=== PATIENT | female | born 1945 | race Caucasian/White ===

== ENCOUNTER 2018-08-31 12:33 | Inpatient (IN) | payer OTHER ==
[~2018-08-31] VITALS: Ht 165.1 cm; Wt 104.3 kg
[2018-08-31] MEDS ORDERED: NALOXONE HCL 1 MG/ML 2ML VIAL IV ONE (14:45)
[2018-08-31 15:15] LABS: HEMATOCRIT. 39.8 % (36.0-48.0); HEMOGLOBIN. 12.9 g/dL (12.0-16.0); MEAN CORPUSCULAR HEMOGLOBIN 28.8 pg (28.0-32.0); MEAN PLATELET VOLUME 9.5 fl (7.4-10.4); PLATELET 295 x1000/uL (130-400); RED BLOOD CELL COUNT 4.47 mill/uL (4.2-5.4); RED CELL DISTRIBUTION WIDTH 20.2 % (11.6-14.6)
[2018-08-31 15:19] LABS: CHLORIDE 112 mEq/L (98-107)
[2018-08-31 15:20] LABS: INR 1.2
[2018-08-31 15:23] LABS: ETHANOL BLOOD < 10 mg/dL
[2018-08-31 16:08] LABS: PLATELET ESTIMATE NORMAL
[2018-08-31 16:17] LABS: CLARITY URINE CLOUDY (CLEAR); COLOR URINE DARK YELLOW (YELLOW); KETONES URINE TRACE (NEGATIVE); LEUKOCYTE ESTERASE URINE TRACE (NEGATIVE); NITRITE URINE POSITIVE (NEGATIVE); OCCULT BLOOD URINE NEGATIVE (NEGATIVE); PROTEIN URINE TRACE (NEGATIVE); SPECIFIC GRAVITY URINE 1.025 (1.005-1.030)
[2018-08-31] MEDS ORDERED: SODIUM CHLORIDE 0.9% 1,000 ML IV ONE (16:43)
[2018-08-31] MEDS ORDERED: LEVOFLOXACIN 750MG PREMIX 150 ML IV ONE (16:45)
[2018-08-31] MEDS ORDERED: ASPIRIN 81MG TABLET PO ONE (18:30)
[2018-08-31] MEDS ORDERED: DOCUSATE SODIUM 100MG CAPSULE PO PRN (18:45)
[2018-08-31] MEDS ORDERED: MAGNESIUM/ALUMINUM HYDROXIDE/SIMETHICONE 30ML UDC PO PRN (18:45)
[2018-08-31] MEDS ORDERED: CLONIDINE 0.1MG TABLET PO PRN (18:45)
[2018-08-31] MEDS ORDERED: HYDROCODONE/ACETAMINOPHEN 5/325MG TABLET PO PRN (18:45)
[2018-08-31] MEDS ORDERED: IPRATROPIUM/ALBUTEROL 0.5-3(2.5)MG/3ML NEB INH PRN (18:45)
[2018-08-31] MEDS ORDERED: ACETAMINOPHEN 325MG TABLET PO PRN (18:45)
[2018-08-31] MEDS ORDERED: DIPHENHYDRAMINE 50MG/ML VIAL IV PRN (18:45)
[2018-08-31] MEDS ORDERED: GUAIFENESIN 200MG/10ML SUGAR FREE UDC PO PRN (18:45)
[2018-08-31] MEDS ORDERED: ONDANSETRON HCL 4MG/2ML INJ IV PRN (18:45)
[2018-08-31] MEDS ORDERED: PIPERACILLIN/TAZ 3.375G PREMIX 50 ML IV SCH (18:45)
[2018-08-31] MEDS ORDERED: IOHEXOL-350 100 ML BOTTLE ONE (18:59)
[2018-08-31 19:14] LABS: *AMPHETAMINES SCREEN URINE NEGATIVE (NEGATIVE); *BARBITURATES SCREEN URINE NEGATIVE (NEGATIVE); *BENZODIAZEPINES SCREEN URINE NEGATIVE (NEGATIVE); *COCAINE SCREEN URINE NEGATIVE (NEGATIVE); CANNABINOID URINE SCREEN NEGATIVE (NEGATIVE); METHADONE URINE SCREEN NEGATIVE (NEGATIVE); PHENCYCLIDINE URINE SCREEN NEGATIVE (NEGATIVE)
[2018-08-31 19:15] LABS: OPIATES URINE SCREEN NEGATIVE (NEGATIVE)
[2018-08-31] MEDS ORDERED: NA PHOS,M-B/NA PHOS,DI-BA ENEMA 118ML PR PRN (21:00)
[2018-08-31 21:30] LABS: CHLORIDE 112 mEq/L (98-107)
[2018-08-31 23:47] VITALS: BP 115/90
[2018-09-01] VITALS (11 sets, daily range): BP systolic 109–168; BP diastolic 67–124
[2018-09-01] MEDS: MORPHINE SULFATE 4 MG/ML CPJ (NOT FOR IM USE) IV PRN ×2 (00:16→05:56)
[2018-09-01] MEDS: ACETYLCYSTEINE 200MG/ML 20% VIAL 4ML INH SCH (00:40)
[2018-09-01] MEDS: IPRATROPIUM/ALBUTEROL 0.5-3(2.5)MG/3ML NEB HHN SCH ×3 (00:40→20:20)
[2018-09-01] MEDS: SODIUM CHLORIDE 0.45% 1,000 ML IV SCH (01:03)
[2018-09-01] MEDS ORDERED: PIPERACILLIN/TAZ 3.375G PREMIX 50 ML IV SCH ×2 (01:15→06:00)
[2018-09-01] MEDS ORDERED: TRAM50TA3 PO (02:42)
[2018-09-01] MEDS ORDERED: MAGN400C PO (02:42)
[2018-09-01] MEDS ORDERED: CALC0.253 MT (02:42)
[2018-09-01] MEDS ORDERED: GABA-529 MT (02:42)
[2018-09-01] MEDS ORDERED: ATOR20TA65 MT (02:42)
[2018-09-01] MEDS ORDERED: ATEN-42 MT (02:42)
[2018-09-01] MEDS ORDERED: OMEP20CA10 PO (02:42)
[2018-09-01 06:48] LABS: BASOPHILS % 0.2 % (0.0-2.0); EOSINOPHILS % 0.1 % (0.0-5.0); HEMATOCRIT. 35.8 % (36.0-48.0); HEMOGLOBIN. 11.6 g/dL (12.0-16.0); LYMPHOCYTES % 11.1 % (20.0-50.0); MEAN CORPUSCULAR HEMOGLOBIN 29.1 pg (28.0-32.0); MEAN CORPUSCULAR VOLUME 90.3 fL (81.0-99.0); MEAN PLATELET VOLUME 9.8 fl (7.4-10.4); MONOCYTES % 8.2 % (2.0-8.0); NEUTROPHILS % 80.4 % (40.0-76.0); PLATELET 276 x1000/uL (130-400); RED BLOOD CELL COUNT 3.97 mill/uL (4.2-5.4)
[2018-09-01 07:04] LABS: CHLORIDE 113 mEq/L (98-107)
[2018-09-01 07:19] LABS: HDL CHOLESTEROL 24 mg/dL (40-59)
[2018-09-01 07:20] LABS: T4 FREE 1.24 ng/dL (0.76-1.46)
[2018-09-01 07:22] LABS: LDL CHOLESTEROL 12 mg/dL (5-100)
[2018-09-01] MEDS ORDERED: ENOXAPARIN 40MG/0.4ML SYR SUBCUT SCH (09:00)
[2018-09-01] MEDS: CEFEPIME 1,000 MG in DEXTROSE 5% WATER 50 ML IV SCH ×2 (09:47→21:37)
[2018-09-01] MEDS: ASPIRIN 81MG EC TABLET PO SCH (09:47)
[2018-09-01] MEDS: METRONIDAZOLE 500 MG PREMIX 100 ML IV SCH ×2 (10:58→19:58)
[2018-09-01] MEDS ORDERED: DIGOXIN 500MCG/2ML AMP IV NR ×3 (11:00→18:30)
[2018-09-01] MEDS ORDERED: POTASSIUM CHLORIDE INJ 40 MEQ in DEXT 5% WATER 250 ML IV SCH (11:00)
[2018-09-01] MEDS: LORAZEPAM 2MG/ML CPJ IV PRN ×3 (12:30→19:45)
[2018-09-01] MEDS ORDERED: ACETYLCYSTEINE 100MG/ML 10% VIAL 4ML INH SCH (14:00)
[2018-09-01] MEDS ORDERED: AMIODARONE HCL 900 MG in DEXT 5% WATER 482 ML IV SCH ×2 (14:30→18:30)
[2018-09-01] MEDS ORDERED: ADENOSINE 3 MG/ML 2ML VIAL IV NR (15:30)
[2018-09-01] MEDS ORDERED: DILTIAZEM HCL 5MG/ML 5ML VIAL IV NR ×3 (16:00→21:30)
[2018-09-01] MEDS ORDERED: AMIODARONE HCL 150 MG in DEXT 5% WATER 100 ML IV NR ×2 (16:00→16:40)
[2018-09-01] MEDS: RISPERIDONE 0.5MG TABLET PO SCH (17:17)
[2018-09-01] MEDS ORDERED: METOPROLOL TARTRATE 25MG TABLET PO SCH (21:00)
[2018-09-01] MEDS ORDERED: DILTIAZEM HCL 125 MG in DEXT 5% WATER 100 ML IV SCH (21:30)
[2018-09-01] MEDS: ENOXAPARIN 30MG/0.3ML SYR SUBCUT SCH (21:32)
[2018-09-01] MEDS: DILTIAZEM HCL 125 MG in DEXT 5% WATER 100 ML IV PRN (23:40)
[2018-09-02] VITALS (11 sets, daily range): BP systolic 106–180; BP diastolic 61–129
[2018-09-02] MEDS: LORAZEPAM 2MG/ML CPJ IV PRN (01:14)
[2018-09-02] MEDS: METRONIDAZOLE 500 MG PREMIX 100 ML IV SCH ×3 (03:49→19:44)
[2018-09-02] MEDS: IPRATROPIUM/ALBUTEROL 0.5-3(2.5)MG/3ML NEB HHN SCH ×4 (05:34→21:27)
[2018-09-02] MEDS: MORPHINE SULFATE 4 MG/ML CPJ (NOT FOR IM USE) IV PRN ×3 (07:00→19:55)
[2018-09-02] MEDS: ACETYLCYSTEINE 200MG/ML 20% VIAL 4ML INH SCH (08:51)
[2018-09-02] MEDS: ENOXAPARIN 30MG/0.3ML SYR SUBCUT SCH (09:00)
[2018-09-02] MEDS: ASPIRIN 81MG EC TABLET PO SCH (09:00)
[2018-09-02] MEDS: RISPERIDONE 0.5MG TABLET PO SCH (09:00)
[2018-09-02] MEDS ORDERED: DIGOXIN 500MCG/2ML AMP IV NR (09:30)
[2018-09-02] MEDS: SODIUM CHLORIDE 0.45% 1,000 ML IV SCH (10:59)
[2018-09-02] MEDS: CEFEPIME 1,000 MG in DEXTROSE 5% WATER 50 ML IV SCH ×2 (11:00→21:24)
[2018-09-02 11:02] LABS: BASOPHILS % 0.2 % (0.0-2.0); EOSINOPHILS % 0.6 % (0.0-5.0); HEMATOCRIT. 33.4 % (36.0-48.0); HEMOGLOBIN. 10.8 g/dL (12.0-16.0); LYMPHOCYTES % 13.8 % (20.0-50.0); MEAN CORPUSCULAR HEMOGLOBIN 28.9 pg (28.0-32.0); MEAN CORPUSCULAR VOLUME 89.5 fL (81.0-99.0); MEAN PLATELET VOLUME 9.5 fl (7.4-10.4); MONOCYTES % 8.1 % (2.0-8.0); NEUTROPHILS % 77.3 % (40.0-76.0); PLATELET 277 x1000/uL (130-400); RED BLOOD CELL COUNT 3.74 mill/uL (4.2-5.4); RED CELL DISTRIBUTION WIDTH 19.4 % (11.6-14.6)
[2018-09-02 11:31] LABS: CHLORIDE 110 mEq/L (98-107)
[2018-09-02] MEDS ORDERED: ENOXAPARIN 60MG/0.6ML SYR SUBCUT SCH (15:00)
[2018-09-02] MEDS: ENOXAPARIN 100MG/ML SYR SUBCUT SCH (21:24)
[2018-09-02] MEDS: METOPROLOL TARTRATE 50MG TABLET PO SCH (21:26)
[2018-09-03] VITALS (13 sets, daily range): BP systolic 116–169; BP diastolic 54–101
[2018-09-03] MEDS: DILTIAZEM HCL 125 MG in DEXT 5% WATER 100 ML IV PRN (00:02)
[2018-09-03] MEDS: ACETYLCYSTEINE 200MG/ML 20% VIAL 4ML INH SCH ×3 (00:58→15:48)
[2018-09-03] MEDS: IPRATROPIUM/ALBUTEROL 0.5-3(2.5)MG/3ML NEB HHN SCH ×6 (00:59→20:06)
[2018-09-03] MEDS: MORPHINE SULFATE 4 MG/ML CPJ (NOT FOR IM USE) IV PRN ×3 (02:33→18:23)
[2018-09-03] MEDS: SODIUM CHLORIDE 0.45% 1,000 ML IV SCH ×2 (02:36→19:40)
[2018-09-03] MEDS: METRONIDAZOLE 500 MG PREMIX 100 ML IV SCH ×2 (02:36→09:59)
[2018-09-03] MEDS ORDERED: AMIODARONE HCL IV NR ×2 (09:00→23:30)
[2018-09-03] MEDS ORDERED: WATER IV NR ×2 (09:00→23:30)
[2018-09-03] MEDS ORDERED: DEXTROSE 5% IV NR ×2 (09:00→23:30)
[2018-09-03 09:40] LABS: HEMATOCRIT. 33.5 % (36.0-48.0); HEMOGLOBIN. 10.8 g/dL (12.0-16.0); MEAN CORPUSCULAR HEMOGLOBIN 28.7 pg (28.0-32.0); MEAN CORPUSCULAR VOLUME 89.4 fL (81.0-99.0); MEAN PLATELET VOLUME 9.6 fl (7.4-10.4); PLATELET 282 x1000/uL (130-400); RED BLOOD CELL COUNT 3.75 mill/uL (4.2-5.4); RED CELL DISTRIBUTION WIDTH 18.7 % (11.6-14.6)
[2018-09-03 09:48] LABS: CHLORIDE 106 mEq/L (98-107)
[2018-09-03] MEDS: ASPIRIN 81MG EC TABLET PO SCH (09:58)
[2018-09-03] MEDS: ENOXAPARIN 100MG/ML SYR SUBCUT SCH (09:58)
[2018-09-03] MEDS: RISPERIDONE 0.5MG TABLET PO SCH (09:58)
[2018-09-03] MEDS: CEFEPIME 1,000 MG in DEXTROSE 5% WATER 50 ML IV SCH (09:59)
[2018-09-03] MEDS: METOPROLOL TARTRATE 50MG TABLET PO SCH ×2 (10:05→22:23)
[2018-09-03] MEDS ORDERED: AMIODARONE HCL 900 MG in DEXT 5% WATER 482 ML IV SCH (12:00)
[2018-09-03 13:35] LABS: PLATELET ESTIMATE NORMAL
[2018-09-03] MEDS ORDERED: PIPERACILLIN/TAZ 3.375G PREMIX 50 ML IV SCH (17:00)
[2018-09-03] MEDS ORDERED: VANCOMYCIN 1500MG in DEXTROSE 5% WATER 250ML IV SCH (18:30)
[2018-09-03] MEDS: PIPERACILLIN/TAZ 3.375G PREMIX 50 ML IV SCH (23:21)
[2018-09-04] VITALS (13 sets, daily range): BP systolic 93–168; BP diastolic 66–107
[2018-09-04] MEDS: ACETYLCYSTEINE 200MG/ML 20% VIAL 4ML INH SCH ×2 (00:28→13:46)
[2018-09-04] MEDS: IPRATROPIUM/ALBUTEROL 0.5-3(2.5)MG/3ML NEB HHN SCH ×6 (00:28→20:47)
[2018-09-04] MEDS: MORPHINE SULFATE 4 MG/ML CPJ (NOT FOR IM USE) IV PRN ×2 (01:17→05:15)
[2018-09-04] MEDS: PIPERACILLIN/TAZ 3.375G PREMIX 50 ML IV SCH ×3 (05:35→18:27)
[2018-09-04] MEDS ORDERED: VANCOMYCIN 500 MG PREMIX 100 ML IV SCH (08:00)
[2018-09-04] MEDS ORDERED: AMIODARONE HCL 200 MG TABLET PO SCH (09:00)
[2018-09-04] MEDS: METOPROLOL TARTRATE 50MG TABLET PO SCH ×2 (09:04→20:39)
[2018-09-04] MEDS: RISPERIDONE 0.5MG TABLET PO SCH (09:05)
[2018-09-04] MEDS ORDERED: VANCOMYCIN 1 G PREMIX 200 ML IV SCH (12:00)
[2018-09-04] MEDS: SODIUM CHLORIDE 0.45% 1,000 ML IV SCH (12:20)
[2018-09-04] MEDS ORDERED: LIDOCAINE HCL 1% 20ML VIAL (Pyxis) INJ ONE (12:20)
[2018-09-04] MEDS ORDERED: SODIUM BICARBONATE 4% (2.4MEQ) 5ML VIAL IV ONE (12:21)
[2018-09-04] MEDS ORDERED: ACETYLCYSTEINE 100MG/ML 10% VIAL 4ML INH SCH (22:00)
== END 2018-09-05 00:10 | disposition short-term general hospital (02) | DRG 871 ==
LOC: ER 14:00 → 5EST 16:51 → ENRESERV 23:00
PROVIDERS: ADMIT Internal Medicine; ATTEND Internal Medicine
PROC: 02HV33Z Insertion of Infusion Device into Superior Vena Cava, Percutaneous Approach (ICD-10-PCS; principal; 2018-09-02)
PROC: B548ZZA Ultrasonography of Superior Vena Cava, Guidance (ICD-10-PCS; 2018-09-02)
PROC: 0R9K3ZX Drainage of Left Shoulder Joint, Percutaneous Approach, Diagnostic (ICD-10-PCS; 2018-09-04)
DX: A41.9 Sepsis, unspecified organism (principal); J69.0 Pneumonitis due to inhalation of food and vomit; G93.41 Metabolic encephalopathy; J96.00 Acute respiratory failure, unspecified whether with hypoxia or hypercapnia; I63.9 Cerebral infarction, unspecified; N39.0 Urinary tract infection, site not specified; E46 Unspecified protein-calorie malnutrition; I82.431 Acute embolism and thrombosis of right popliteal vein; E78.00 Pure hypercholesterolemia, unspecified; E78.5 Hyperlipidemia, unspecified; E87.6 Hypokalemia; I00 Rheumatic fever without heart involvement; I11.0 Hypertensive heart disease with heart failure; I25.10 Atherosclerotic heart disease of native coronary artery without angina pectoris; I48.91 Unspecified atrial fibrillation; I50.9 Heart failure, unspecified; J44.9 Chronic obstructive pulmonary disease, unspecified; M75.100 Unspecified rotator cuff tear or rupture of unspecified shoulder, not specified as traumatic; Z79.899 Other long term (current) drug therapy; Z86.73 Personal history of transient ischemic attack (TIA), and cerebral infarction without residual deficits; Z98.84 Bariatric surgery status; M19.90 Unspecified osteoarthritis, unspecified site; Z90.49 Acquired absence of other specified parts of digestive tract; S51.812A Laceration without foreign body of left forearm, initial encounter; S51.811A Laceration without foreign body of right forearm, initial encounter; X58.XXXA Exposure to other specified factors, initial encounter; Y93.89 Activity, other specified; Y92.89 Other specified places as the place of occurrence of the external cause; Y99.8 Other external cause status; S41.111A Laceration without foreign body of right upper arm, initial encounter; E86.0 Dehydration; Z68.38 Body mass index [BMI] 38.0-38.9, adult
CPT/HCPCS: 20611; 36415; 36569; 70496; 70498; 70551; 71045; 76881; 76937; 78580; 80048; 80061; 80305; 82962; 83605; 83721; 83735; 84132; 84134; 84145; 84439; 84443; 84484; 89060; 92610; 93005; 93970; 94640; 96374; 96375; 99285; C1725; J0153; J0282; J0692; J1160; J1200; J1650; J1956; J2060; J2270; J2310; J2543; J3370; J3480; J3490; J7040; J7060; J7608; J7620; Q9967